=== PATIENT | female | born 1990 | race Caucasian/White ===

== ENCOUNTER 2021-12-16 10:29 | Outpatient (CLI) | payer OTHER, SELFPAY ==
[2021-12-16 11:04] LABS: Alanine Aminotransferase 24 U/L (4-35); Aspartate Amino Transferase 51 U/L (14-36)
== END 2021-12-16 10:30 | disposition home or self-care (01) ==
LOC: ANHLAB 10:34
PROVIDERS: Visit Provider Podiatrist Foot & Ankle Surgery
DX: B35.1 Tinea unguium (principal)
CPT/HCPCS: 36415; 84450; 84460